=== PATIENT | male | born 1990 ===

== ENCOUNTER 2017-11-26 19:09 | Emergency (ER) | payer OTHER ==
[2017-11-26 19:38] VITALS: BP 136/81; PULSE 90; RESP 20; TEMP 98.1; O2SAT 100
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
== END 2017-11-26 20:36 | disposition home or self-care (01) ==
LOC: C.ER 19:09
DX: S39.012A Strain of muscle, fascia and tendon of lower back, initial encounter (principal); V49.9XXA Car occupant (driver) (passenger) injured in unspecified traffic accident, initial encounter
CPT/HCPCS: 96372; 99283; J1885

== ENCOUNTER 2017-12-01 17:12 | Emergency (ER) | payer OTHER ==
[2017-12-01 17:25] VITALS: RESP 18
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
[2017-12-01 19:11] VITALS: BP 114/81; PULSE 88; TEMP 98.7
[2017-12-01 21:00] VITALS: O2SAT 98
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
== END 2017-12-01 19:11 | disposition home or self-care (01) ==
LOC: C.ER 17:12
DX: S39.012D Strain of muscle, fascia and tendon of lower back, subsequent encounter (principal); V89.2XXD Person injured in unspecified motor-vehicle accident, traffic, subsequent encounter
CPT/HCPCS: 72100; 96372; 99284; J1885